=== PATIENT | female | born 1990 | race Caucasian/White ===

== ENCOUNTER 2018-09-26 10:02 | Emergency (ER) | payer OTHER ==
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
[2018-09-26 13:20] VITALS: BP 123/84
== END 2018-09-26 13:21 | disposition home or self-care (01) ==
LOC: ED 10:02
DX: S16.1XXA Strain of muscle, fascia and tendon at neck level, initial encounter (principal); S20.219A Contusion of unspecified front wall of thorax, initial encounter; M25.511 Pain in right shoulder; M79.671 Pain in right foot; V53.5XXA Driver of pick-up truck or van injured in collision with car, pick-up truck or van in traffic accident, initial encounter; W22.11XA Striking against or struck by driver side automobile airbag, initial encounter; Y93.9 Activity, unspecified; Y92.410 Unspecified street and highway as the place of occurrence of the external cause
CPT/HCPCS: 71046; 72125; 99283

== ENCOUNTER 2018-10-27 09:05 | Outpatient (CLI) | payer OTHER ==
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
== END 2018-10-27 09:06 | disposition home or self-care (01) ==
LOC: DI 09:05
PROVIDERS: ATTEND Family Medicine
DX: Z04.1 Encounter for examination and observation following transport accident (principal); M50.222 Other cervical disc displacement at C5-C6 level; R51 Headache; M54.9 Dorsalgia, unspecified
CPT/HCPCS: 72141